=== PATIENT | female | born 1990 | race Caucasian/White ===

== ENCOUNTER 2019-04-03 11:56 | Emergency (ER) | payer SELFPAY ==
[~2019-04-03] VITALS: Ht 166.4 cm; Wt 70.5 kg
[2019-04-03 12:53] VITALS: BP 117/74
== END 2019-04-03 13:10 | disposition home or self-care (01) ==
LOC: ER 11:57
DX: S02.2XXA Fracture of nasal bones, initial encounter for closed fracture (principal); S09.90XA Unspecified injury of head, initial encounter; Y04.0XXA Assault by unarmed brawl or fight, initial encounter; Y93.89 Activity, other specified; Y92.89 Other specified places as the place of occurrence of the external cause; Y99.9 Unspecified external cause status
CPT/HCPCS: 99281; 99283